=== PATIENT | male | born 1955 | race Caucasian/White ===

== ENCOUNTER 2021-05-10 08:15 | Day surgery (SDC) | payer MEDICARE ==
[2021-05-07 13:55] LABS: BASOPHILS # (AUTO) 0.1 X10'3 (0-0.2); BASOPHILS % (AUTO) 0.7 % (0-1); EOSINOPHILS # (AUTO) 0.1 X10'3 (0-0.9); EOSINOPHILS % (AUTO) 1.8 % (0-6); LYMPHOCYTES # (AUTO) 0.9 X10'3 (1.1-4.8); LYMPHOCYTES % (AUTO) 11.3 % (21-51); MEAN CORPUSCULAR HEMOGLOBIN 25.6 PG (27.0-31.0); MEAN CORPUSCULAR HGB CONC 31.6 g/dL (33.0-36.5); MEAN PLATELET VOLUME 7.2 FL (7.4-10.4); MONOCYTES # (AUTO) 0.6 X10'3 (0-0.9); MONOCYTES % (AUTO) 8.1 % (2-12); NEUTROPHILS # (AUTO) 5.9 X10'3 (1.8-7.7); NEUTROPHILS % (AUTO) 78.1 % (42-75); PRE OP HEMATOCRIT 44.5 % (42.0-52.0); PRE OP HEMOGLOBIN 14.1 g/dL (14.0-17.9); PRE OP PLATELET COUNT 396 X10'3 (140-440); RED CELL DISTRIBUTION WIDTH 15.5 % (11.5-14.5)
[2021-05-07 14:02] LABS: CLARITY,URINE CLEAR (Clear); GLUCOSE, URINE NEGATIVE (Neg); KETONES,URINE NEGATIVE (Neg); LEUKOCYTE ESTERASE ,URINE NEGATIVE (Neg); NITRITES, URINE NEGATIVE (Neg); OCCULT BLOOD,URINE NEGATIVE (Neg); PROTEIN,URINE NEGATIVE (Neg); UROBILINOGEN,URINE 0.2 E.U/dL (0.2-1.0)
[2021-05-07 14:08] LABS: PRE OP PROTIME 10.6 SECONDS (9.0-12.0)
[2021-05-07 14:11] LABS: ALBUMIN 3.4 G/DL (3.4-5.0); ALBUMIN/GLOBULIN RATIO 0.7 (1.1-1.5); ALKALINE PHOSPHATASE 88 IU/L (46-116); BLOOD UREA NITROGEN 14 MG/DL (7-18); BUN/CREATININE RATIO 12.1 (5.4-32.0); CALCIUM 8.9 MG/DL (8.5-10.1); CHLORIDE 104 MMOL/L (99-107); CREATININE 1.16 MG/DL (0.60-1.10); PRE OP ALT 17 U/L (30-65); PRE OP ANION GAP 6 (8-16); PRE OP AST 22 U/L (10-37); PRE OP BILIRUB, TOTAL 0.6 MG/DL (0.0-1.0); PRE OP GLUCOSE 105 MG/DL (70-104); PRE OP POTASSIUM 3.7 MMOL/L (3.4-5.1); PRE OP SODIUM 137 MMOL/L (135-145); TOTAL CARBON DIOXIDE 27.5 MMOL/L (24-32); TOTAL PROTEIN 8.2 G/DL (6.4-8.2); eGFR 63 ML/MIN
[2021-05-07 14:17] LABS: COLOR,URINE STRAW (Yellow); UA COLLECTION TYPE NON-SPECIFIED
[~2021-05-10] VITALS: Ht 162.6 cm; Wt 123.9 kg
[2021-05-10] VITALS (14 sets, daily range): BP systolic 127–155; BP diastolic 71–88
[~2021-05-10 08:15] MED LIST: PSYL575P22 PO; ceFAZolin inj. 3,000 MG in normal saline 100ml IV soln 100 ML IV ONE; famotidine 20mg tablet PO ONE; ringers solution, lacted 1,000 ML IV SCH
[2021-05-10] MEDS ORDERED: BUPIVAcaine 0.5% inj/PF 30 ML ONE ×2 (08:50→13:01)
[2021-05-10] MEDS ORDERED: fentaNYL /PF 50mcg/ml 5ml ampule ONE (10:21)
[2021-05-10] MEDS ORDERED: midazolam 1 mg/ML 2ml injection ONE (10:21)
[2021-05-10] MEDS ORDERED: propofol inj 20 ML IV ONE (10:52)
[2021-05-10] MEDS ORDERED: dexamethasone sod phosphate 4mg/ml inj. ONE (10:53)
[2021-05-10] MEDS ORDERED: LIDOcaine 2% (20mg/ml) 5ml vial ONE (10:53)
[2021-05-10] MEDS ORDERED: ondansetron/PF 4mg/2ml inj ONE (10:53)
[2021-05-10] MEDS ORDERED: rocuronium 10mg/ml inj IV ONE ×2 (10:53→11:30)
[2021-05-10] MEDS ORDERED: BUPIVACAINE liposomal/PF 13.3 MG/ML vial IM ONE (12:39)
[2021-05-10] MEDS ORDERED: sugammadex 200mg/2ml injection IV ONE ×2 (13:17→13:29)
--- NOTE | 2021-05-10 13:37 | NUR ---
Received from OR via [place] , accompanied by Anesthesiologist DR BRUCE and report given by Anesthesiolgist. PT PRESENTS WITH 20G LEFT FOREARM, ABD DRESSING WITH BINDER JACKIE, VSS. Addendum: 05/10/21 at 1345 by Frances Hinojosa RN, RN Amended: Links added.
[2021-05-10] MEDS ORDERED: morphine 2 MG/ML inj. syringe IV PRN (14:40)
[2021-05-10] MEDS ORDERED: meperidine/PF 25mg/ml syringe IV PRN ×2 (14:40)
[2021-05-10] MEDS ORDERED: HYDROcodone/acetaminophen 10/325mg tab PO ONE (14:40)
[2021-05-10] MEDS ORDERED: morphine 4 MG/ML inj SYRINge IV PRN (14:40)
[2021-05-10] MEDS ORDERED: ondansetron/PF 4mg/2ml inj IV PRN (14:40)
--- NOTE | 2021-05-10 15:40 | NUR ---
PATIENT DISCHARGED FROM PACU IN STABLE CONDITION AFTER WRITTEN AND VERBAL DISCHARGE INSTRUCTIONS GIVEN. PATIENT GAVE VERBAL UNDERSTANDING OF INSTRUCTIONS GIVEN. PATIENT LEFT FACILITY VIA WHEELCHAIR WITH RN. Addendum: 05/10/21 at 1549 by Frances Hinojosa RN RN Amended: Links added.
== END 2021-05-10 15:40 | disposition home or self-care (01) ==
LOC: PAS 08:15
PROVIDERS: ATTEND Surgery
DX: K43.2 Incisional hernia without obstruction or gangrene (principal); E11.9 Type 2 diabetes mellitus without complications; E66.9 Obesity, unspecified; Z68.42 Body mass index [BMI] 45.0-49.9, adult; Z90.5 Acquired absence of kidney; Z79.84 Long term (current) use of oral hypoglycemic drugs; Z85.528 Personal history of other malignant neoplasm of kidney; Z79.01 Long term (current) use of anticoagulants; Z79.899 Other long term (current) drug therapy; Z87.891 Personal history of nicotine dependence; Z20.822 Contact with and (suspected) exposure to COVID-19
CPT/HCPCS: 36415; 49654; 64488; 71046; 80053; 81003; 85025; 85610; 85730; 86885; 86900; 86901; 87635; 93005; C1758; C1781; C9290; C9803; J0690; J1100; J2250; J2405; J2704; J3010; J3490; J7030; J7120; S0020; Z7506; Z7508; Z7512; A4215; A4618